=== PATIENT | male | born 1945 | race Caucasian/White ===

== ENCOUNTER → 2021-11-26 | Outpatient (CLI) | payer MEDICARE | LOC: COL.RAD 14:38 | DX: G31.9 Degenerative disease of nervous system, unspecified (principal); G93.89 Other specified disorders of brain ==

== ENCOUNTER 2023-11-22 06:38 | Day surgery (SDC) | payer MEDICARE ==
[~2023-11-22] VITALS: Ht 175.3 cm; Wt 70.9 kg
[2023-11-22] VITALS (8 sets, daily range): BP systolic 137–152; BP diastolic 58–68; PULSE 61–72; TEMP 97.5–98
[~2023-11-22 06:38] MED LIST: LR 1,000 ML IV SCH
[2023-11-22] MEDS ORDERED: dexAMETHasone 10 MG/ML VIAL ONE (07:28)
[2023-11-22] MEDS ORDERED: NS 10 ML IV ONE (07:28)
[2023-11-22] MEDS ORDERED: fentaNYL 50 MCG/ML 2 ML VIAL ONE (07:28)
[2023-11-22] MEDS ORDERED: Ondansetron 4 MG/2 ML VIAL ONE (07:28)
--- NOTE | 2023-11-22 07:38 | NUR ---
Initial visit; Patient and his thanked [employer] for visiting, offering encouragement regarding the health care we provide at [facility], our Dr., Nurses and entire staff. They appeared anxious when [employer] began to speak with them though following conversation, a couple of laughs and especially prayer for a successful "Procedure" and rapid recovery, they appeared to be more comfortable and relaxed. [employer] offered God's blessings and wished them all good things.
[2023-11-22] MEDS ORDERED: fentaNYL 50 MCG/ML 2 ML VIAL IV PRN ×2 (08:00)
[2023-11-22] MEDS ORDERED: Ondansetron 4 MG/2 ML VIAL IV PRN ×2 (08:00→09:30)
[2023-11-22] MEDS ORDERED: HYDROmorphone 2 MG/1 ML VIAL IV PRN (08:00)
[2023-11-22] MEDS ORDERED: droPERidol 2.5 MG/ML 2 ML VIAL IV PRN (08:00)
[2023-11-22] MEDS ORDERED: hydrALAZINE 20 MG/ML 1 ML VIAL IV PRN (08:00)
[2023-11-22] MEDS ORDERED: ePHEDrine 50 MG/ML VIAL ONE (08:38)
[2023-11-22] MEDS ORDERED: Morphine 4 MG/ML VIAL IV PRN (09:30)
[2023-11-22] MEDS ORDERED: NORCO 325 MG-51 TAB PO (09:34)
--- NOTE | 2023-11-22 11:55 | NUR ---
0955 RETURNS TO ROOM 8 PER CART. AWAKE, ALERT. HOB ELEVATED 50 DEGREES. RESP UNLABORED. ABD SOFT. DRESSING RIGHT LOWER [employer]ANT CLEAN DRY AND INTACT. REPORTS "VERY MILD" DISCOMFORT. VITAL SIGNS OBTAINED. CALL LIGHT AT SIDE 1010 HOB ELEVATED 80 DEGREES. TOLERATES PO WATER, SODA AND PUDDING WITHOUT NAUSEA. UNABLE TO MAKE CONTACT WITH VIA TELEPHONE. 1025 AWAKE, ALERT. WATCHES TELEVISION. SEVERAL ATTREMPTS TO REACH PER TELEPHONE WITHOUT SUCCESS 1040 TOLERATES PO ICE CREAM 1045 CALLS BACK AFTER NOTICING "MISSED CALL" ON TELEPHONE. STATES RETURNED TO [place]. WILL RETURN AROUND NOON 1054 DISCHARGE INSTRUCTIONS REVIEWED. PATIENT VERBALIZES UNDERSTANDING. COPY PROVIDED IN DISCHARGE FOLDEER 1100 AMBULATES TO BATHROOM WITH STANDBY ASSIST. GAIT STEADY. DENIES INCREASE IN PAIN. REPORTS VOIDED WITHOUT DIFFICULTY 1115 LYING ON CART. AWAKE, ALERT. WATCHES TELEVISION 1130 IV SITE DC'D 1140 HERE. DISCHARGE INSTRUCTIONS AGAIN REVIEWED WITH PATIENT AND 1145 SITS IN CHAIR AT BEDSIDE. DRESSES SELF, THEN AMBULATES TO BATHROOM. AGAIN, REPORTS VOIDED WITHOUT DIFFICULTY
== END 2023-11-22 11:55 | disposition home or self-care (01) ==
LOC: SDCO 06:38
DX: K40.90 Unilateral inguinal hernia, without obstruction or gangrene, not specified as recurrent (principal); G30.1 Alzheimer's disease with late onset; F02.A0 Dementia in other diseases classified elsewhere, mild, without behavioral disturbance, psychotic disturbance, mood disturbance, and anxiety
CPT/HCPCS: C1781; J0690; J1100; J2405; J2704; J3010; J7120